=== PATIENT | female | born 1975 | race Two or more races ===

== ENCOUNTER 2024-05-14 04:06 | Emergency (ER) | payer MEDICAID, OTHER ==
[~2024-05-14] VITALS: Ht 160 cm; Wt 65.4 kg
[2024-05-14 04:19] VITALS: BP 108/63; PULSE 105; RESP 16; TEMP 99.6; O2SAT 96
--- NOTE | 2024-05-14 05:26 | ED.PDOC ---
History of Present Illness HPI Comments This is a 49-year-old female presents to the ED chief complaint fever. Patient states fever times 1 week along with body aches sore throat fatigue shortness of breath and weakness. Patient states she is type 1 diabetic. States has been taking [id number] medications with little relief. She denies chest pain, difficulty breathing. Chief Complaint: Fever Time Seen by MD: 04:31 Reviewed Notes: Nurses Notes, Medications, Allergies Past Medical History PAST MEDICAL HISTORY: DM Surgical History: Denies all surgeries APPLICATION SECURITY CONSULTANT History: No Pertinent APPLICATION SECURITY CONSULTANT History Constitutional: Chills, Fatigue, No Symptoms Reported, Weakness EENTM: Nasal Discharge, Throat Pain Respiratory: Cough, Shortness of Breath Cardiovascular: No Symptoms Reported Gastrointestinal: Nausea Genitourinary: No Symptoms Reported Neurological: No Symptoms Reported Musculoskeletal: No Symptoms Reported Integumentary: No Symptoms Reported Allergic/Immunocompromised: others Hematologic/Lymphatic: No Symptoms Reported Endocrine: No Symptoms Reported Psychiatric: No symptoms Reported All Other Systems: Reviewed and Negative Physical Exam General Appearance: No Apparent Distress, Normal HEENT: Pharyngeal Erythema, TMs Normal Neck: Full Range of Motion, Non-Tender Respiratory: Chest Non-Tender, Decreased Breath Sounds, No Accessory Muscle Use, No Respiratory Distress Cardiovascular: No Edema, No JVD, No Murmur, No Gallop, Normal Peripheral Pulses, Regular Rate/Rhythm Breast Exam: Deferred Gastrointestinal: No Organomegaly, Non Tender, No Pulsatile Mass, Normal Bowel Sounds, Soft Genitalia: Deferred Pelvic: Deferred Rectal: Deferred Extremities: Normal capillary refill, Normal inspection, Normal range of motion, Non-tender, No pedal edema Musculoskeletal : Apperance: Normal Neurologic: Alert, sample checker II-XII nml as Tested, No Motor Deficits, Normal Affect, Normal Mood, No Sensory Deficits Cerebellar Function: Normal Reflexes: Normal Skin: Dry, Normal Color, Warm Lymphatic: No Adenopathy Was a procedure done? Was a procedure done?: No Fever Differential Dx Differential Diagnosis: Pneumonia X-Ray, Labs, Meds, VS Vital Signs Date Time Temp Pulse Resp B/P (MAP) Pulse Ox O2 Delivery O2 Flow Rate FiO2 05/14/24 04:19 Room Air 05/14/24 04:19 99.6 105 16 108/63 (78) 96 05/14/24 04:19 99.6 105 16 108/63 (78) 96 99.6 Lab Test 05/14/24 05:48 05/14/24 05:28 Range/Units Influenza Type A Antigen Negative Negative Influenza Type B Antigen Negative Negative Urine Color Light-yellow Yellow Urine Clarity Clear Clear Urine pH 5.0 5.0-9.0 Urine Specific [place] 1.024 1.001-1.035 Urine Protein Negative Negative Urine Ketones Negative Negative Urine Blood Negative Negative /uL Urine Nitrite Negative Negative Urine Bilirubin Negative Negative Urine Urobilinogen Normal Negative mg/dL Urine Leukocyte Esterase Negative Negative /uL Urine RBC <1 0 - 4 /hpf Urine WBC 1 0 - 5 /hpf Urine Squamous Epithelial Cells Few <5 /hpf Urine Bacteria None seen None Seen /hpf Urine Mucus Few None Seen Urine Glucose Normal Normal mg/dL X-Ray, Labs, Meds, VS Comment Imaging: Chest x-ray two view neg Labs: Influenza a and B swab neg Urinalysis wnl DELETE UPPER RESPIRATORY IN NATURE BACTERIAL WE WILL START PATIENT ON AUGMENTIN TWICE DAILY TIMES 7-10 DAYS. ADVISED TO REST INCREASE P.O. FLUIDS WITH ELECTROLYTES FOLLOW UP WITH HER PCP IN 2-3 DAYS MONITOR HER BLOOD SUGARS MORE CLOSELY ER RETURN PRECAUTIONS GIVEN PATIENT AGREES WITH DISCHARGE PLAN OF CARE. Time of 1ST Reevaluation: 05:40 Reevaluation 1ST: Improved Patient Education/Counseling: Diagnosis, Treatment, Prognosis, Need For Follow Up Family Education/Counseling: Diagnosis, Treatment, Prognosis, Need For Follow Up Departure 1 Departure Time of Disposition: 05:46 Impression: Primary Impression: Upper respiratory infection Qualified Codes: J06.9 - Acute upper respiratory infection, unspecified Disposition: 01 HOME / SELF CARE / HOMELESS Condition: Stable e-Prescriptions Amoxicillin & Pot Clavulanate (AUGMENTIN TABLET) 875 Mg Tb 1 TAB PO BID for 7 Days, #14 TAB Prov: PATIENCE GUIDO 05/14/24 Discharged With: Relative (Daughter) Critical Care Note Critical Care Time?: No Stability Stability form required: PATIENCE Vines May 14, 2024 05:26
[2024-05-14] MEDS ORDERED: AUG875T PO (05:46)
[2024-05-14 05:47] LABS: Urine Bacteria None Seen /hpf (None Seen)
--- NOTE | 2024-05-14 06:01 | DVH ---
CHEST RADIOGRAPH Indication: fever SOB Technique: Frontal and lateral view of the chest was obtained Comparison: None FINDINGS: Lines and Tubes: None Lungs: Clear Pleura: No effusion. No pneumothorax. Cardiomediastinal contours: Unremarkable Bones: Unremarkable IMPRESSION: No evidence of acute disease.
[2024-05-14 06:12] LABS: Urine Blood Negative /uL (Negative); Urine Clarity Clear (Clear); Urine Color Light-Yellow (Yellow); Urine Mucus FEW (None Seen); Urine Protein, UAD Negative (Negative); Urine Specific Gravity 1.024 (1.001-1.035); Urine Urobilinogen Normal (Negative); Urine WBC 1 /hpf (0 - 5)
[2024-05-14 06:27] LABS: Rapid Influenza A Negative (Negative); Rapid Influenza B Negative (Negative)
== END 2024-05-14 06:51 | disposition home or self-care (01) ==
LOC: ER 04:06
DX: J06.9 Acute upper respiratory infection, unspecified (principal); E10.9 Type 1 diabetes mellitus without complications
CPT/HCPCS: 71046; 81001; 87804